=== PATIENT | male | born 1995 | race Caucasian/White ===

== ENCOUNTER 2022-04-01 01:16 | Emergency (ER) | payer MEDICAID ==
[~2022-04-01] VITALS: Ht 182.9 cm; Wt 72.1 kg
[2022-04-01 01:40] VITALS: BP 104/68
[2022-04-01 04:12] LABS: BASOPHILS % 0.4 % (0.0-2.0); HEMATOCRIT. 46.9 % (42.0-52.0); HEMOGLOBIN. 16.2 g/dL (14.0-18.0); LYMPHOCYTES % 26.3 % (20.0-50.0); MEAN CORPUSCULAR HEMOGLOBIN 33.8 pg (28.0-32.0); MEAN CORPUSCULAR VOLUME 97.6 fL (80.0-94.0); MEAN PLATELET VOLUME 9.3 fl (7.4-10.4); MONOCYTES % 10.6 % (2.0-8.0); NEUTROPHILS % 61.7 % (40.0-76.0); PLATELET 150 x1000/uL (130-400); RED CELL DISTRIBUTION WIDTH 12.3 % (11.6-14.6)
[2022-04-01 04:23] LABS: CHLORIDE 104 mEq/L (98-107)
[2022-04-01 06:11] LABS: CLARITY URINE CLEAR (CLEAR); COLOR URINE YELLOW (YELLOW); KETONES URINE NEGATIVE (NEGATIVE); LEUKOCYTE ESTERASE URINE NEGATIVE (NEGATIVE); NITRITE URINE NEGATIVE (NEGATIVE); OCCULT BLOOD URINE NEGATIVE (NEGATIVE); PROTEIN URINE NEGATIVE (NEGATIVE); SPECIFIC GRAVITY URINE 1.019 (1.005-1.030)
== END 2022-04-01 06:59 | disposition home or self-care (01) ==
LOC: ER 01:16
DX: R11.2 Nausea with vomiting, unspecified (principal)
CPT/HCPCS: 36415; 80053; 81003; 85025; 99283

== ENCOUNTER 2023-07-12 20:51 | Emergency (ER) | payer MEDICAID ==
[~2023-07-12] VITALS: Ht 180.3 cm; Wt 70.0 kg
[2023-07-12 21:13] VITALS: TEMP 97.3; O2SAT 99
[2023-07-12] MEDS: IBUPROFEN 600MG TABLET PO ONE (22:34)
[2023-07-12] MEDS: ACETAMINOPHEN 325MG TABLET PO ONE (22:35)
[2023-07-13] MEDS ORDERED: TOPUD MT (00:38)
[2023-07-13] MEDS ORDERED: IBUP-1525 MT (00:38)
[2023-07-13 00:47] VITALS: BP 117/72; PULSE 57; RESP 20
== END 2023-07-13 00:48 | disposition home or self-care (01) ==
LOC: ER 20:51
DX: M94.20 Chondromalacia, unspecified site (principal); M25.561 Pain in right knee
CPT/HCPCS: 73560; 99283